=== PATIENT | female | born 1990 | race Caucasian/White ===

== ENCOUNTER 2019-01-25 13:41 | Emergency (ER) | payer MEDICAID ==
[~2019-01-25] VITALS: Ht 154.9 cm; Wt 82.0 kg
[2019-01-25] MEDS ORDERED: BACITRACIN ZINC OINT UDPKT TOP ONE (14:15)
[2019-01-25] MEDS ORDERED: IBUPROFEN 800MG TABLET PO ONE (14:15)
[2019-01-25] MEDS ORDERED: TETANUS, DIPHTHERIA, PERTUSSIS VAC/PF 0.5ML (>7YR OLD) IM ONE (14:15)
[2019-01-25 15:19] VITALS: BP 136/90
== END 2019-01-25 15:19 | disposition home or self-care (01) ==
LOC: ER 13:41
DX: S90.822A Blister (nonthermal), left foot, initial encounter (principal); F20.9 Schizophrenia, unspecified; F17.200 Nicotine dependence, unspecified, uncomplicated; X58.XXXA Exposure to other specified factors, initial encounter; Y93.89 Activity, other specified; Y92.89 Other specified places as the place of occurrence of the external cause; Y99.8 Other external cause status
CPT/HCPCS: 90471; 90715; 99283